=== PATIENT | male | born 1980 | race Two or more races ===

== ENCOUNTER 2025-10-08 10:16 | Emergency (ER) | payer OTHER ==
[~2025-10-08] VITALS: Ht 182.9 cm; Wt 83.9 kg
[2025-10-08] MEDS ORDERED: COZAAR50 MG (12:09)
[2025-10-08] MEDS ORDERED: VITAMIN D310 MC6 (12:10)
[2025-10-08] MEDS ORDERED: FAMOTIDINE/PF 20 MG in 0.9 % SODIUM CHLORIDE 8 ML IV PUSH STA (12:49)
[2025-10-08] MEDS ORDERED: CEFTRIAXONE SODIUM 2,000 MG VIAL ONE (12:57)
[2025-10-08] MEDS ORDERED: ACETAMINOPHEN 500 MG GEL..CAP PO ONE (12:57)
[2025-10-08] MEDS ORDERED: FAMOTIDINE/PF 20 MG/2 ML VIAL ONE ×2 (12:58→13:01)
[2025-10-08] MEDS ORDERED: CEFTRIAXONE SODIUM 2,000 MG VIAL IV ONE (13:00)
[2025-10-08] MEDS ORDERED: ACETAMINOPHEN 325 MG TABLET PO ONE (13:00)
[2025-10-08] MEDS ORDERED: 0.9 % SODIUM CHLORIDE 1,000 ML IV SCH (13:00)
[2025-10-08 14:28] LABS: URINE APPEARANCE Clear; URINE BILIRRUBIN Negative (NEGATIVE); URINE BLOOD Negative; URINE COLOR Dark Yellow; URINE GLUCOSE Negative (NEGATIVE); URINE KETONE Trace (NEGATIVE); URINE LEUKOCYTE Trace; URINE NITRATE Negative; URINE PROTEIN Trace (NEGATIVE); URINE UROBILINOGEN 1.0 E.U./dl
[2025-10-08 14:29] LABS: URINE BACTERIA 99.5 uL (0.0-1933); URINE EPITHELIAL CELLS 7.2 uL (0.0-38.8); URINE RBC 5.1 uL (0.0-20.8); URINE WBC 28.6 uL (0.0-23.2)
[2025-10-08 14:33] LABS: BASO % 1.4 % (0.1-1.2); EOS # 0.16 (0.04-0.54); EOS % 2.4 % (0.7-7.0); LYMPH # 2.42 (1.18-3.74); LYMPH % 36.4 % (19.3-53.1); MEAN PLATELET VOLUME 9.40 fl (9.4-12.4); MONO # 0.84 (0.24-0.82); NEUT # 3.13 (1.56-6.13); NEUT % 47.0 % (34.0-71.1); RED CELL DISTRIBUTION WIDTH 13.1 % (11.6-14.4)
[2025-10-08 14:33] LABS: URINE CAST 0.29 uL (0.0-1.40)
[2025-10-08 14:53] LABS: ERYTHROCYTE SEDIMENTATION RATE 35 mm/hr (0-15)
[2025-10-08 15:03] LABS: ALT/SGPT 32.0 U/L (12-78); AST/SGOT 31.0 U/L (15-37); BILIRUBIN TOTAL 0.34 mg/dL (0.3-1.2); BUN CREA RATIO 17.0 (7.0-25.0); CREATININE SERUM 1.09 mg/dL (0.70-1.30); GFR 72.51; GLOBULINA 3.4 G/DL (2.4-3.5); GLUCOSE FASTING 90.0 mg/dL (65-100); OSMOLALITY SERUM 279.0 MOSM/KG (275-295)
[2025-10-08 16:14] LABS: MONO % 12.6 % (4.7-12.5)
[2025-10-08 16:15] LABS: BASOPHIL MAN 1.0 %; EOSINOPHIL MAN 2.0 %; LYMPHOCYTE MAN 39.0 %; MONOCYTE MAN 9.0 %; NEUTROPHILS MAN 48.0 %
== END 2025-10-08 20:01 | disposition home or self-care (01) ==
LOC: ER 10:16
PROVIDERS: General Practice
DX: J03.80 Acute tonsillitis due to other specified organisms (principal); B96.89 Other specified bacterial agents as the cause of diseases classified elsewhere; I10 Essential (primary) hypertension; B20 Human immunodeficiency virus [HIV] disease; R42 Dizziness and giddiness